=== PATIENT | female | born 1935 | race Caucasian/White ===

== ENCOUNTER → 2024-07-23 09:22 | Outpatient (REF) | payer OTHER, SELFPAY | LOC: RAD 09:22 | PROVIDERS: ATTENDING PHYSICIAN Surgery Vascular Surgery; FAMILY PHYSICIAN Family Medicine | DX: I65.23 Occlusion and stenosis of bilateral carotid arteries (principal) | CPT/HCPCS: 93880 ==

== ENCOUNTER → 2025-01-28 09:57 | Outpatient (REF) | payer OTHER, SELFPAY | LOC: HWRAD 09:57 | PROVIDERS: ATTENDING PHYSICIAN Family Medicine | DX: R22.41 Localized swelling, mass and lump, right lower limb (principal); M79.604 Pain in right leg | CPT/HCPCS: 73590; 73610; 93971 ==

== ENCOUNTER → 2025-04-16 09:33 | Outpatient (REF) | payer OTHER, SELFPAY | LOC: PAVMRI 09:33 | PROVIDERS: ATTENDING PHYSICIAN Family Medicine | DX: M79.604 Pain in right leg (principal) | CPT/HCPCS: 73718; 73721 ==